=== PATIENT | female | born 1950 | race Caucasian/White ===

== ENCOUNTER 2016-10-04 06:51 | Inpatient (IN) ==
--- NOTE | 2016-10-01 22:06 | Discharge Summary ---
<Мария Wade - Last Filed: 10/01/16 22:03> Date of Encounter: 10/01/16 - Discharge Diagnosis (1) Arthritis of shoulder region, left Priority: Primary Status: Acute (2) CAD (coronary artery disease) Priority: Secondary Status: Chronic Qualifiers: Coronary Disease-Associated Artery/Lesion type: unspecified vessel or lesion type [place] vs. transplanted heart: unspecified whether [place] or transplanted heart Associated angina: angina presence unspecified Qualified Code(s): I25.10 - Atherosclerotic heart disease of [place] coronary artery without angina pectoris (3) HTN (hypertension) Priority: Secondary Status: Chronic Qualifiers: Hypertension type: essential hypertension (4) Pacemaker Priority: Secondary Status: Chronic - Discharge Medications Home Medications: Aspirin 81 mg PO DAILY 05/29/16 [History] Atenolol [Tenormin] 25 mg PO DAILY 05/29/16 [History] Atorvastatin Calcium [Lipitor] 20 mg PO DAILY 05/29/16 [History] Cholecalciferol (Vitamin D3) [Vitamin D3] 1,000 unit PO DAILY 05/29/16 [History] Folic Acid 1 mg PO DAILY 05/29/16 [History] Furosemide [Lasix] 40 mg PO DAILY 05/29/16 [History] Levothyroxine [Synthroid] 25 mcg PO DAILY 05/29/16 [History] Lisinopril [Zestril] 10 mg PO DAILY 05/29/16 [History] Montelukast Sodium [Singulair] 5 mg PO DAILY 05/29/16 [History] Paroxetine HCl [Paxil] 20 mg PO DAILY 05/29/16 [History] OxyCODONE Immed Rel [Roxicodone 5 MG] 5 - 10 mg PO Q6HR PRN #40 tablet 10/01/16 [Rx] Budesonide/Formoterol 160/4.5 [Symbicort 160/4.5] 2 puff IH BIDR 10/04/16 [ History] Calcium Carbonate [Calcium] 600 mg PO DAILY 10/04/16 [History] Venlafaxine HCl [Venlafaxine HCl ER] 225 mg PO DAILY 10/04/16 [History] Allergies/Adverse Reactions: Allergies Iodinated Contrast Media - Oral and Allergy (Verified 10/04/16 08:21) See Comments "kidneys shut down" Penicillins Adverse Reaction (Verified 10/04/16 08:21) Rash Primary care physician: Melanie Vo MD - Patient Status Disposition: Home, Self-Care Condition: Good - Discharge Instructions Follow Up With: Robert Cedeno MD [Partnered Physician] - 10/31/16 9:35 am Мария Wade PAC [Physician Produce Buyer] - 10/12/16 10:00 am Additional Instructions: Discharge Instructions: Total Shoulder Please call [facility] ([phone]), your Primary Care Physician, or report to the Emergency Room if you have any of the following symptoms: Nausea, vomiting, fever greater that 101.5, swelling, chest pain, shortness of breath, increased pain/redness/drainage/odor for your incision site, numbness/ tingling, or any other concerning symptoms. ACTIVITY: Always keep your arm in the sling. Do not raise your arm away from your body. Do not use your arm to help with getting in or out of bed. No weight bearing permitted. Only perform those exercises given to you by your therapist. MEDICATIONS: Upon discharge resume your home medications. Take all the medications as prescribed. Take a stool softener if taking narcotic pain medications. Stool softeners are only effective if you drink enough fluids. Drink 6-8 glass of water or fluids a day, unless this is not allowed for another health problem. Despite using stool softeners, if you haven't had a bowel movement in 3 days, please switch to a gentle laxative. Gentle laxatives are sold over the counter. You should have a bowel movement within 24 hours, if not call the office. You will be discharged from the hospital with a prescription for pain medication. You are encouraged to decrease the use of narcotic pain medication as tolerated. Should you require a refill, please call the office. [facility] prescribes narcotic pain medication for only 4-6 weeks after surgery. If you require pain medication beyond this time period, you may be referred to your Primary Care Physician or to the Pain Clinic for further evaluation. Plan ahead for refills on pain medication as many narcotics either need to be picked up at the office or mailed. It is best to call 48-72 hours in advance of needing a prescription refill so you don't run out of medication. To help control the post-operative pain, you may take NSAIDs (Aleve,Advil, Motrin, ibuprofen, naprosyn) or Tylenol as prescribed on the bottle in addition to the pain medication. WOUND CARE: Leave the dressing on for 7 days. You may change the dressing if it becomes saturated greater than 50%. You can shower but not a tub bath or submerge your incision in water. Wash your hands with antibacterial soap, rinse and dry prior to any wound care. If you have antonio the visiting nurse or rehab facility can remove the stapes 10-14 days after surgery and place steri -strips across the wound. Leave the steri-strips in place until they fall off on their won. You may let water from the shower run on top of the steri- stirips. If you do not have a visiting nurse or rehab facility, you will need to return to the office at 10-14 days for the antonio to be removed. FOLLOW-UP: Please follow up with your surgeon in the orthopedic clinic, as scheduled - Hospital Course Hospital course: Ms. Davis is a 66 year old female - Time Spent with Patient Total time spent providing and/or coordinating discharge services: <Robert Cedeno - Last Filed: 10/05/16 08:36> Date of Encounter: 10/05/16 Time of Encounter: 08:36 - Discharge Diagnosis (1) Anterior shoulder dislocation Priority: Primary Status: Acute Qualifiers: Encounter type: subsequent encounter Laterality: left Qualified Code(s): S43.015D - Anterior dislocation of left humerus, subsequent encounter (2) CAD (coronary artery disease) Priority: Secondary Status: Chronic Qualifiers: Coronary Disease-Associated Artery/Lesion type: unspecified vessel or lesion type [place] vs. transplanted heart: unspecified whether [place] or transplanted heart Associated angina: angina presence unspecified Qualified Code(s): I25.10 - Atherosclerotic heart disease of [place] coronary artery without angina pectoris (3) HTN (hypertension) Priority: Secondary Status: Chronic Qualifiers: Hypertension type: essential hypertension Qualified Code(s): I10 - Essential (primary) hypertension (4) Pacemaker Priority: Secondary Status: Chronic (5) Acute blood loss anemia Priority: Primary Status: Acute Primary care physician: Melanie Vo MD - Patient Status Functional capacity at discharge: independent ambulation Overall status at discharge: patient is progressing back to baseline - Hospital Course Hospital course: Ms. Davis is a 66 year old female The patient had an uneventful postoperative course. They received antibiotics and physical therapy and were discharged in stable condition. There will follow -up in the office in 2 weeks. - Time Spent with Patient Total time spent providing and/or coordinating discharge services:
--- NOTE | 2016-10-04 07:36 | Anesthesia Evaluation PreOp ---
Date of Encounter: 10/04/16 Time of Encounter: 07:34 - Past History Planned Operation: L TSR Cardiac History: HTN, Hyperlipidemia, Cardiac Surgery (avr, mvr), Cardiac Stent , Pacemaker/ICD (mono 9.9 years, DDDR, 100% paced), Other (echo 02/11: ef 50, nl rv) Pulmonary History: Asthma SLP History: Other (depression) Other Medical History: Thyroid Anesthesia History: No Prior Anesthetic Complications, Past Anesthesia ( hysterect, knee, shoulder, sinus, nose, l elbow, avr, mvr, cabg, pm, l tsr, acdf ) Alcohol Use: none Drug use: none Medications and Allergies Aspirin 81 mg PO DAILY 05/29/16 [History] Atenolol [Tenormin] 25 mg PO DAILY 05/29/16 [History] Atorvastatin Calcium [Lipitor] 20 mg PO DAILY 05/29/16 [History] Cholecalciferol (Vitamin D3) [Vitamin D3] 1,000 unit PO DAILY 05/29/16 [History] Folic Acid 1 mg PO DAILY 05/29/16 [History] Furosemide [Lasix] 40 mg PO DAILY PRN 05/29/16 [History] Levothyroxine [Synthroid] 25 mcg PO DAILY 05/29/16 [History] Lisinopril [Zestril] 10 mg PO DAILY 05/29/16 [History] Montelukast Sodium [Singulair] 5 mg PO DAILY 05/29/16 [History] Paroxetine HCl [Paxil] 20 mg PO DAILY 05/29/16 [History] OxyCODONE Immed Rel [Roxicodone 5 MG] 5 - 10 mg PO Q6HR PRN #40 tablet 10/01/16 [Rx] Allergies Iodinated Contrast Media - Oral and Allergy (Unverified 05/29/16 08:28) See Comments "kidneys shut down" Penicillins Adverse Reaction (Unverified 05/24/16 13:46) Rash - Meds/Allergy Pre-op Review Medications Reviewed: Yes Allergies Reviewed: Yes Beta Blockers on Current Med List: Yes If Beta Blockers taken, Date/Time (Last Dose taken): atenolol at045 Anesthesia Results - Labs Laboratory Tests 09/27/16 09/27/16 09/27/16 12:03 12:03 12:03 Hgb 12.2 Hct 37.9 Plt Count 245 PT 11.2 INR 1.0 APTT 29.0 Sodium 138 Potassium Creatinine 1.05 09/28/16 11:48 Hgb Hct Plt Count PT INR APTT Sodium Potassium 5.1 H Creatinine - Imaging EKG: report reviewed (OCCUPATIONAL THERAPIST'S ASSISTANT rhythm) Anesthesia Exam O2 Sat Height 1.7 m Height 1.7 m Weight 66.224 kg Weight 66.224 kg O2 Sat by Pulse Oximetry 98 Vital Signs Temp Pulse Resp BP Pulse Ox 97.6 F 69 18 129/74 98 10/04/16 07:14 10/04/16 07:14 10/04/16 07:14 10/04/16 07:14 10/04/16 07:14 Height: 1.7 Weight: 66 NPO (# of Hours): >8 - HEENT Pupil (Motor): Pupils equal, EOMI Mallampati: I Teeth: Edentulous Denture Type: Upper: Complete Oral Opening: Greater than 3 - SLP LOC: Oriented SLP Motor: Normal RUE, Normal LUE, Normal RLE, Normal LLE, Normal Face SLP Sensory: Normal: RUE, LUE, RLE, LLE, Face - Cardiac Rhythm: Regular Murmur: None - Pulmonary Breath Sounds: bilateral Clear Respiratory Effort: Symmetrical Anesthesia Assess/Plan ASA Score: 3 (Important placement of magnet and make sure bovie return does not cross PM) Modified Fleming Scale for Level of Consciousness: Cooperative, oriented, and tranquil Anesthetic Plan: General, Regional Monitoring Plan: Standard Monitors Recovery Plan: PACU
[2016-10-04] MEDS ORDERED: Clindamycin 900 MG/50 ML 900 MG/50 ML IV.SOLN IVPB ONE (07:54)
[2016-10-04] MEDS ORDERED: Ringers Solution, Lactated 1,000 ML IVC SCH ×2 (08:00→14:57)
[2016-10-04] MEDS ORDERED: *HR* FentaNYL (PF) 100 MCG/2 ML VIAL ONE (08:04)
[2016-10-04] MEDS ORDERED: *HR* Midazolam HCl 2 MG/2 ML VIAL ONE (08:04)
[2016-10-04] MEDS ORDERED: *HR* Succinylcholine 200 MG/10 ML VIAL IVP ONE (08:05)
[2016-10-04] MEDS ORDERED: *HR* Propofol 200 MG/20 ML VIAL IVP ONE (08:05)
[2016-10-04] MEDS ORDERED: Lidocaine -MPF 2% 2 ML VIAL ONE (08:05)
[2016-10-04] MEDS ORDERED: Albuterol 2.5 MG/3 ML NEBULIZER IH ONE (08:13)
[2016-10-04] MEDS ORDERED: Bupivacaine/Clonidine Syringe 1 EACH SYRINGE ONE (08:16)
[2016-10-04] MEDS ORDERED: Albuterol 2.5 MG/3 ML NEBULIZER ONE (08:16)
--- NOTE | 2016-10-04 09:05 | History & Physical Report ---
Date of Encounter: 10/04/16 Time of Encounter: 08:25 24 Hour HP Update - Instructions Instructions: If the History and Physical is less than 30 days old and was completed prior to A.M. admission and or procedure and has NOT been updated on calendar day of procedure please complete this update prior to performing procedure. - Update Patient reports changes in Medical Condition: No Changes in assessment/condition: No Changes in Medication: No Preop tests/diagnostics Reviewed: Yes Surgery Remains Indicated: Yes Consent for Planned Operative Procedure(s) Verified: Yes - Pre-Operative Checklist Preoperative Checklist Indicated: No Prophylactic Antibiotic Ordered: Yes Is VTE Prophylaxis Indicated?: Yes
--- NOTE | 2016-10-04 09:06 | Anesthesia Procedures ---
Date of Encounter: 10/04/16 Time of Encounter: 08:55 Procedures: Anesthesia - Nerve Block Procedure Date: 10/04/16 Time: 08:50 Checklist: Correct Patient Identifier, Correct procedure, History checked Correct side: Left Monitor Applied: EKG, BP, Pulse Oximetry Supplemental Oxygen via Nasal Cannula (L/min): 2 Sedation: Versed (mg): 2 Sedation: Fentanyl (mcg): 100 Indication: Post Op Analgesia Pre-op Neuro Deficits: No Block Type: Supraclavicular Sterile Technique: Yes Ultrasound used: Yes Anatomy identified: Yes Visual spread of Local: Yes Neuro Stimulation: No Blood on Needle Aspiration: No Smooth Injection of Local: Yes Pain with Injection of Local: No Prep: Chlorhexadine Needle: 22 x 50 mm Stimuplex Local: 0.25% Bupivicaine w/Clonidine 20 mcg/cc Volume (cc): 40 Number of Attempts: 1 Complications: None/effective block Vitals: VSS 105/68 68
[2016-10-04] MEDS ORDERED: Ondansetron 4 MG/2 ML VIAL ONE (09:34)
[2016-10-04] MEDS ORDERED: Dexamethasone 4 MG/ML VIAL ONE (09:34)
[2016-10-04] MEDS ORDERED: *HR* Phenylephrine 10 MG/ML VIAL ONE (09:42)
--- NOTE | 2016-10-04 10:03 | Orthopedic Operative Note ---
Date of procedure: 10/04/16 Pre-op diagnosis: Unstable left total shoulder Post-op diagnosis: same Procedure: Procedure: Left Revision Total Shoulder replacement reverse Estimated blood loss: 100 cc Hardware: Arthrex Revers Base plate: small Glenosphere: 36 lateral 2 4.5 screws 1 6.5 screw Humeral stem: 6 Poly insert: 3 Metal insert Procedural Notes:dislocated total shoulder subscap failure Operative procedure: The patient was brought to the operating room and placed on the operating room table. The patient was placed in the modified beachchair position. All pressure points were padded appropriately. And the head was stabilized in the neutral position. The operative extremity was prepped and draped in the sterile surgical fashion. The patient received IV antibiotics prior to skin incision. A standard deltopectoral approach was made to the operative shoulder. Incision was made through the skin and subcutaneous tissue,hemo stasis was obtained with Bovie cautery. Incision was through old incision. Using careful blunt dissection the cephalic vein was identified and mobilized medially. The deltopectoral interval was developed and the clavipectoral fascia was incised. Patient had rupture of the subscap. Humerus was dislocated. Humeral head was removed followed by the humeral stem without bone loss. Anterior and posterior Bankart retractors were used to expose the glenoid, the glenoid component was removed without incident. The glenoid guide was seated the centering hole was made the glenoid was reamed with the appropriate small reamer. The glenoid baseplate was seated and secured and locked in place with the locking screws. The baseplate was irrigated and dried to 6 lateral glenosphere was seated and secured. Attention was then turned to the humeral side. The humerus was reamed and broached up to its appropriate size 6 in 20 degrees of retroversion. Trial reduction found the shoulder to be relocatable. Trial components were removed, real implants were seated. Trial reduction found the shoulder to be stable with the appropriate 3. The trial implants were removed the real implants were seated and secured in the shoulder was reduced. The patient had excellent motion and excellent stability no shuck. The deep tissue was irrigated with pulse irrigation deltopectoral interval was closed with #2 PDS. Superficially the subcutaneous tissue was closed with 0 PDS suture, the skin was closed with Dermabond. The patient placed sterile dressing, postoperative brace extubated and transferred to the recovery room in stable condition. Anesthesia: GETA Surgeon: Robert Cedeno Pneumatic System Conveyor Operator: Мария Wade Condition: stable Disposition: PACU
[2016-10-04] MEDS: *HR* HYDROmorphone (PF) 1 MG/ML SYRINGE IVP PRN ×2 (10:35→10:52)
[2016-10-04 10:47] LABS: Hematocrit 32.3 % (35.3-44.9); Hemoglobin 10.7 g/dL (11.5-15.4)
--- NOTE | 2016-10-04 14:25 | Anesthesia Evaluation Post Op ---
Date of Encounter: 10/04/16 Time of Encounter: 14:24 - Vital Signs Vital Signs: Vital Signs/O2 Sat, Most Current Temp Pulse Resp BP Pulse Ox 97.6 F 74 18 89/59 95 10/04/16 11:36 10/04/16 13:20 10/04/16 13:20 10/04/16 13:20 10/04/16 13:20 - Lungs Lungs: Clear Ascult./Percussion - Airway Airway: Non-obstructed - Cardiovascular Regular Rate - Mental Status Mental Status: Alert & Oriented, Answers Appropriately - Pain Pain Scale: 0 Pain Scale used: Numeric (1 - 10) - Nausea Vomiting Nausea Vomiting: Not Present - Hydration Hydration: Tolerates oral liquids, Has not voided - Discharge PostOp Status: Discharge Patient to home
[2016-10-04] MEDS ORDERED: *HR* HYDROmorphone (PF) 1 MG/ML SYRINGE IVP PRN (14:57)
[2016-10-04] MEDS ORDERED: MOM Conc 10 ML UD.LIQ PO PRN (14:57)
[2016-10-04] MEDS ORDERED: Naloxone 0.4 MG/ML INJ IVP PRN (14:57)
[2016-10-04] MEDS ORDERED: *HR* OxyCODONE Immed Rel 5 MG TABLET PO PRN (14:57)
[2016-10-04] MEDS ORDERED: Acetaminophen 325 MG TABLET PO PRN (14:57)
[2016-10-04] MEDS ORDERED: Ondansetron 4 MG/2 ML VIAL IVP PRN (14:57)
[2016-10-04] MEDS ORDERED: Sennosides 8.6 MG TABLET PO PRN (14:57)
[2016-10-04] MEDS ORDERED: Temazepam 15 MG CAPSULE PO PRN (14:57)
[2016-10-04] MEDS: Clindamycin 900 MG/50 ML 900 MG/50 ML IV.SOLN IVPB SCH (15:21)
[2016-10-04] MEDS: Budesonide/Formoterol 160/4.5 MDI IH SCH ×2 (15:23→21:51)
[2016-10-04] MEDS ORDERED: *HR* Enoxaparin 30 MG/0.3 ML SYRINGE SQ SCH (18:00)
[2016-10-04] MEDS: *HR* Enoxaparin 30 MG/0.3 ML SYRINGE SQ SCH (18:29)
[2016-10-05] MEDS: Clindamycin 900 MG/50 ML 900 MG/50 ML IV.SOLN IVPB SCH (01:05)
[2016-10-05] MEDS: *HR* OxyCODONE Immed Rel 5 MG TABLET PO PRN ×2 (01:14→07:32)
[2016-10-05 05:28] LABS: Hematocrit 26.8 % (35.3-44.9)
[2016-10-05 05:50] LABS: Hemoglobin 9.1 g/dL (11.5-15.4)
[2016-10-05] MEDS ORDERED: Levothyroxine 25 MCG TABLET PO SCH (06:30)
[2016-10-05] MEDS: *HR* Enoxaparin 30 MG/0.3 ML SYRINGE SQ SCH (07:31)
[2016-10-05] MEDS: Budesonide/Formoterol 160/4.5 MDI IH SCH (08:12)
--- NOTE | 2016-10-05 08:37 | Orthopedics Progress Note ---
Date of Encounter: 10/05/16 Time of Encounter: 08:37 - Assessment and Plan (1) Anterior shoulder dislocation Current Visit: Yes Status: Acute Qualifiers: Encounter type: subsequent encounter Laterality: left Qualified Code(s): S43.015D - Anterior dislocation of left humerus, subsequent encounter (2) CAD (coronary artery disease) Current Visit: No Status: Chronic Qualifiers: Coronary Disease-Associated Artery/Lesion type: unspecified vessel or lesion type [place] vs. transplanted heart: unspecified whether [place] or transplanted heart Associated angina: angina presence unspecified Qualified Code(s): I25.10 - Atherosclerotic heart disease of [place] coronary artery without angina pectoris (3) HTN (hypertension) Current Visit: No Status: Chronic Qualifiers: Hypertension type: essential hypertension Qualified Code(s): I10 - Essential (primary) hypertension (4) Pacemaker Current Visit: No Status: Chronic (5) Acute blood loss anemia Current Visit: Yes Status: Acute Subjective Interval history: Patient was seen this morning doing well without complaints. Afebrile vital signs stable. Operative extremity: Neurovascularly intact Dressing clean dry and intact Calves nontender Assessment and plan: Continue with postoperative care Hemoglobin 9.1 discharged today Objective Vital signs: Vital Signs Temp Pulse Resp BP Pulse Ox 10/05/16 07:09 98.1 F 94 16 94/57 95 10/05/16 04:28 97.8 F 70 16 98/61 95 10/05/16 01:21 67 96/59 10/05/16 00:03 97.8 F 68 16 100/64 97 10/04/16 22:24 93/59 10/04/16 21:52 16 96 10/04/16 19:12 97.3 F L 66 14 87/55 95 10/04/16 18:00 98.1 F 70 18 99/69 94 L 10/04/16 17:00 97.6 F 69 16 85/54 92 L 10/04/16 16:00 98.3 F 69 14 90/59 92 L 10/04/16 15:30 98.5 F 76 18 102/65 97 10/04/16 15:00 98.3 F 76 16 91/55 97 10/04/16 14:20 75 16 86/53 95 10/04/16 13:20 74 18 89/59 95 10/04/16 12:20 75 16 80/52 94 L 10/04/16 11:50 77 16 93/62 93 L 10/04/16 11:36 97.6 F 79 16 106/66 95 10/04/16 11:14 97.0 F L 77 16 108/73 100 10/04/16 11:04 76 16 113/73 100 10/04/16 10:54 72 16 110/66 100 10/04/16 10:44 97.7 F 68 16 106/71 100 10/04/16 10:34 70 16 113/74 100 10/04/16 10:24 70 16 113/74 100 10/04/16 10:14 97.2 F L 70 18 143/94 92 L 10/04/16 09:02 71 17 105/68 99 10/04/16 08:52 70 16 116/73 100 Intake and Output 10/04/16 10/05/16 10/05/16 23:59 07:59 15:59 Intake Total 407 / 407 900 / 900 Output Total 100 / 100 250 / 250 Balance 307 / 307 650 / 650 Intake: IV Fluids 50 / 50 900 / 900 Lactated Ringers 1,000 ML 900 / 900 @ 75 mls/hr IVC .[id number] EVA Rx#:[id number] Cleocin 900 MG/50 ML 900 50 / 50 mg In 50 ml @ 50 mls/hr IVPB Q8H EVA Rx#: [id number] Oral 357 / 357 Output: Urine 100 / 100 250 / 250 Other: Meal Dinner Percent of Meal Consumed 75% - Labs CBC & BMP: 10/05/16 05:00 Labs: Abnormal lab results Hgb 9.1 g/dL (11.5-15.4) L D 10/05/16 05:00 Hct 26.8 % (35.3-44.9) L 10/05/16 05:00 - VTE Documentation of Mechanical Device: Venous foot pump, device Consult Discharge Plan - Plan Additional Instructions: Discharge Instructions: Total Shoulder Please call [facility] ([phone]), your Primary Care Physician, or report to the Emergency Room if you have any of the following symptoms: Nausea, vomiting, fever greater that 101.5, swelling, chest pain, shortness of breath, increased pain/redness/drainage/odor for your incision site, numbness/ tingling, or any other concerning symptoms. ACTIVITY: Always keep your arm in the sling. Do not raise your arm away from your body. Do not use your arm to help with getting in or out of bed. No weight bearing permitted. Only perform those exercises given to you by your therapist. MEDICATIONS: Upon discharge resume your home medications. Take all the medications as prescribed. Take a stool softener if taking narcotic pain medications. Stool softeners are only effective if you drink enough fluids. Drink 6-8 glass of water or fluids a day, unless this is not allowed for another health problem. Despite using stool softeners, if you haven't had a bowel movement in 3 days, please switch to a gentle laxative. Gentle laxatives are sold over the counter. You should have a bowel movement within 24 hours, if not call the office. You will be discharged from the hospital with a prescription for pain medication. You are encouraged to decrease the use of narcotic pain medication as tolerated. Should you require a refill, please call the office. [facility] prescribes narcotic pain medication for only 4-6 weeks after surgery. If you require pain medication beyond this time period, you may be referred to your Primary Care Physician or to the Pain Clinic for further evaluation. Plan ahead for refills on pain medication as many narcotics either need to be picked up at the office or mailed. It is best to call 48-72 hours in advance of needing a prescription refill so you don't run out of medication. To help control the post-operative pain, you may take NSAIDs (Aleve,Advil, Motrin, ibuprofen, naprosyn) or Tylenol as prescribed on the bottle in addition to the pain medication. WOUND CARE: Leave the dressing on for 7 days. You may change the dressing if it becomes saturated greater than 50%. You can shower but not a tub bath or submerge your incision in water. Wash your hands with antibacterial soap, rinse and dry prior to any wound care. If you have antonio the visiting nurse or rehab facility can remove the stapes 10-14 [address] surgery [address] steri -strips across the wound. Leave the steri-strips in place until they fall off on their won. You may let water from the shower run on top of the steri- stirips. If you do not have a visiting nurse or rehab facility, you will need to return to the office at 10-14 days for the antonio to be removed. FOLLOW-UP: Please follow up with your surgeon in the orthopedic clinic, as scheduled Referrals: Robert Cedeno MD [Partnered Physician] - 10/31/16 9:35 am Мария Wade PAC [Physician Automatic Bow Maker Machine Tender] - 10/12/16 10:00 am
[2016-10-05] MEDS ORDERED: Venlafaxine XR (24 HR) 75 MG CAP.ER.24H PO SCH (09:00)
[2016-10-05] MEDS ORDERED: Aspirin 81 MG TAB.CHEW PO SCH (09:00)
[2016-10-05] MEDS ORDERED: Furosemide 40 MG TABLET PO SCH (09:00)
[2016-10-05] MEDS ORDERED: Cholecalciferol (D-3) 1,000 UNIT TABLET PO SCH (09:00)
[2016-10-05] MEDS ORDERED: Folic Acid 1 MG TABLET PO SCH (09:00)
[2016-10-05] MEDS ORDERED: 0.9 % Sodium Chloride 1,000 ML IVC ONE (09:16)
[2016-10-05] MEDS ORDERED: 0.9 % Sodium Chloride 1,000 ML ONE (09:16)
[2016-10-05 11:18] VITALS: BP 112/75
== END 2016-10-05 14:32 | disposition home or self-care (01) | DRG 483 ==
LOC: SAMDAY 06:51 → 1NENUPED 12:31 → 3ANU 12:32 → 3NENU 23:46
PROVIDERS: ADMIT Orthopaedic Surgery; ATTEND Orthopaedic Surgery